=== PATIENT | male | born 1950 | race Caucasian/White ===

== ENCOUNTER 2018-03-16 04:49 | Emergency (ER) | payer OTHER, MEDICARE ==
[~2018-03-16] VITALS: Ht 180.3 cm; Wt 81.7 kg
[~2018-03-16 04:49] MED LIST: AMLODIPINE-BEN1 EAC3 PO; ASPIRIN EC81 M1; ASPIRIN325 PO; CARAFATE 11 GM/10 M1 PO; CLONIDINE HCL0.2 M2 PO; COMBIVENT INH; COREG3.125 MG PO; CRESTOR10 MG; DOXYCYCLINE 10100 M1 PO; GINSENG520 MG PO; HYDROCHLOROTHIA25 M1 PO; HYTRIN 5 M5 MG/1 CAP PO; HYTRIN10 MG; IBUPROFEN 200200 M1 PO; IMDUR 30 MG TAB30 M1 PO; LEVAQUIN 500 M500 M2 PO; LIPITOR 10 MG10 M1 PO; NEURONTIN 300300 M1; OMEPRAZOLE20 M2 PO; PANTOPRAZOLE SO40 M1 PO; PLAVIX 75 MG TA75 M1 PO; PREDNISONE 10 M10 MG PO; PROSTATE HEALT1 EAC1 PO; SERTRALINE HCL100 MG; SYMBICORT160 MCG/4. INH; TURMERIC500 MG PO; ZOCOR 20 MG TAB20 M1 PO
[2018-03-16 05:39] LABS: CALCIUM 8.9 mg/dL (8.5-10.1); CREATININE 0.9 mg/dL (0.6-1.3); POTASSIUM 3.9 mmol/L (3.5-5.1)
[2018-03-16 05:50] LABS: URINE BILIRUBIN NEGATIVE (Negative); URINE BLOOD 3+ (Negative); URINE CLARITY CLOUDY; URINE COLOR YELLOW; URINE GLUCOSE-RANDOM NEGATIVE (Negative); URINE KETONES NEGATIVE (Negative); URINE PROTEIN 2+ (Negative); URINE SPECIFIC GRAVITY 1.015 (1.005-1.030)
[2018-03-16 05:51] LABS: URINE LEUKOCYTES-REFLEX 3+ (Negative); URINE NITRITE-REFLEX POSITIVE (Negative)
[2018-03-16] MEDS ORDERED: CIPRO500 MG PO (06:10)
[2018-03-16 06:14] LABS: BACTERIA-REFLEX >30 Many /HPF (None Seen); CASTS None Seen /LPF (None Seen); CRYSTALS None Seen /LPF (None Seen); MUCUS 4-6 Moderate strn/LPF (None Seen); SQUAMOUS NONE SEEN /LPF (0-3); URINE RBC 3-10 Few /HPF (0-2)
[2018-03-16 06:52] VITALS: BP 162/101
== END 2018-03-16 06:52 | disposition home or self-care (01) ==
LOC: M.ERS 04:49
PROVIDERS: Emergency Medicine Emergency Medical Services
DX: N39.0 Urinary tract infection, site not specified (principal); I10 Essential (primary) hypertension; J44.9 Chronic obstructive pulmonary disease, unspecified; N40.0 Benign prostatic hyperplasia without lower urinary tract symptoms; Z88.0 Allergy status to penicillin

== ENCOUNTER 2018-04-03 01:34 | Emergency (ER) | payer OTHER, MEDICARE ==
[~2018-04-03] VITALS: Ht 177.8 cm; Wt 80.7 kg
[~2018-04-03 01:34] MED LIST changes: +CIPRO500 MG PO
[2018-04-03 02:22] LABS: URINE BILIRUBIN NEGATIVE (Negative); URINE BLOOD 3+ (Negative); URINE COLOR YELLOW; URINE GLUCOSE-RANDOM NEGATIVE (Negative); URINE KETONES TRACE (Negative); URINE PROTEIN 2+ (Negative); URINE SPECIFIC GRAVITY 1.015 (1.005-1.030); URINE UROBILINOGEN 0.2 E.U./dl (0.2-1.0)
[2018-04-03 02:23] LABS: BACTERIA-REFLEX >30 Many /HPF (None Seen); SQUAMOUS 0-3 Few /LPF (0-3); URINE CLARITY SL CLOUDY; URINE LEUKOCYTES-REFLEX 2+ (Negative); URINE NITRITE-REFLEX POSITIVE (Negative); URINE RBC >20 Many /HPF (0-2); URINE WBC-REFLEX >25 Many /HPF (0-5); WBC CLUMPS Few (None Seen)
[2018-04-03 02:24] LABS: AMORPHOUS URATES Moderate /LPF (None Seen); CASTS None Seen /LPF (None Seen); MUCUS 4-6 Moderate strn/LPF (None Seen)
[2018-04-03] MEDS ORDERED: ZOFRAN ODT4 MG PO (02:49)
[2018-04-03] MEDS ORDERED: CIPROFLOXACIN500 M1 PO (02:49)
[2018-04-03 03:48] VITALS: BP 161/83
== END 2018-04-03 03:50 | disposition home or self-care (01) ==
LOC: M.ERS 01:34
PROVIDERS: Emergency Medicine
DX: N39.0 Urinary tract infection, site not specified (principal); I10 Essential (primary) hypertension; I48.91 Unspecified atrial fibrillation; J44.9 Chronic obstructive pulmonary disease, unspecified; G58.9 Mononeuropathy, unspecified; Z85.46 Personal history of malignant neoplasm of prostate; Z88.0 Allergy status to penicillin

== ENCOUNTER 2018-05-05 05:53 | Emergency (ER) | payer OTHER, MEDICARE ==
[~2018-05-05] VITALS: Ht 177.8 cm; Wt 81.7 kg
[~2018-05-05 05:53] MED LIST changes: +CIPROFLOXACIN500 M1 PO; +ZOFRAN ODT4 MG PO
[2018-05-05] MEDS ORDERED: ASPIR 8181 MG PO (06:09)
[2018-05-05] MEDS ORDERED: TROSPIUM CHLORI20 MG PO (06:11)
[2018-05-05] MEDS ORDERED: LOPRESSOR25 PO (06:12)
[2018-05-05] MEDS ORDERED: FERROUS SULFAT324 M1 PO (06:14)
[2018-05-05] MEDS ORDERED: PROSCAR 5MG TABL5 MG PO (06:15)
[2018-05-05] MEDS ORDERED: TAMSULOSIN HCL0.4 MG PO (06:15)
[2018-05-05] MEDS ORDERED: COLACE100 MG PO (06:15)
[2018-05-05] MEDS ORDERED: ERYTHROMYCIN (06:17)
[2018-05-05 06:52] VITALS: BP 171/99
== END 2018-05-05 06:56 | disposition home or self-care (01) ==
LOC: M.ERS 05:53
DX: T83.098A Other mechanical complication of other urinary catheter, initial encounter (principal); I10 Essential (primary) hypertension; I48.91 Unspecified atrial fibrillation; J44.9 Chronic obstructive pulmonary disease, unspecified; G62.9 Polyneuropathy, unspecified; Z85.46 Personal history of malignant neoplasm of prostate; Z88.0 Allergy status to penicillin; Y84.8 Other medical procedures as the cause of abnormal reaction of the patient, or of later complication, without mention of misadventure at the time of the procedure; Y92.89 Other specified places as the place of occurrence of the external cause

== ENCOUNTER 2018-05-07 22:36 | Emergency (ER) | payer OTHER, MEDICARE ==
[~2018-05-07] VITALS: Ht 180.3 cm; Wt 81.7 kg
[~2018-05-07 22:36] MED LIST changes: +ASPIR 8181 MG PO; +COLACE100 MG PO; +ERYTHROMYCIN; +FERROUS SULFAT324 M1 PO; +LOPRESSOR25 PO; +PROSCAR 5MG TABL5 MG PO; +TAMSULOSIN HCL0.4 MG PO; +TROSPIUM CHLORI20 MG PO
[2018-05-07 23:23] LABS: URINE BILIRUBIN NEGATIVE (Negative); URINE BLOOD 2+ (Negative); URINE CLARITY SL CLOUDY; URINE COLOR YELLOW; URINE GLUCOSE-RANDOM NEGATIVE (Negative); URINE KETONES NEGATIVE (Negative); URINE PROTEIN TRACE (Negative); URINE UROBILINOGEN 0.2 E.U./dl (0.2-1.0)
[2018-05-07 23:26] LABS: URINE LEUKOCYTES-REFLEX 3+ (Negative); URINE NITRITE-REFLEX POSITIVE (Negative)
[2018-05-07 23:48] LABS: SQUAMOUS 0-3 Few /LPF (0-3)
[2018-05-07 23:49] LABS: CASTS None Seen /LPF (None Seen); MUCUS 0-3 Light strn/LPF (None Seen); URINE WBC-REFLEX >25 Many /HPF (0-5)
[2018-05-07 23:50] LABS: BACTERIA-REFLEX >30 Many /HPF (None Seen); TRIPLE PHOSPHATE CRYSTALS 4-10 Moderate /LPF (None Seen); URINE RBC 3-10 Few /HPF (0-2)
[2018-05-07] MEDS ORDERED: CEFUROXIME500 MG PO (23:57)
[2018-05-08] MEDS ORDERED: LASIX 20 MG TAB20 MG PO (00:01)
[2018-05-08 01:05] VITALS: BP 186/100
== END 2018-05-08 01:10 | disposition home or self-care (01) ==
LOC: M.ERS 22:36
PROVIDERS: Emergency Medicine
DX: N39.0 Urinary tract infection, site not specified (principal); I10 Essential (primary) hypertension; J44.9 Chronic obstructive pulmonary disease, unspecified; I48.91 Unspecified atrial fibrillation; G62.9 Polyneuropathy, unspecified; Z85.46 Personal history of malignant neoplasm of prostate; Z88.0 Allergy status to penicillin

== ENCOUNTER 2018-06-04 00:33 | Inpatient (IN) | payer OTHER ==
[~2018-06-04] VITALS: Ht 182.9 cm; Wt 80.3 kg
[~2018-06-04 00:33] MED LIST changes: +CEFUROXIME500 MG PO; +LASIX 20 MG TAB20 MG PO
[2018-06-04 00:34] VITALS: BP 136/81
[2018-06-04] MEDS ORDERED: TROSPIUM CHLORI20 MG (00:47)
[2018-06-04] MEDS ORDERED: PROSCAR 5MG TABL5 MG (00:48)
[2018-06-04] MEDS ORDERED: BENAZEPRIL HCL5 MG (00:48)
[2018-06-04] MEDS ORDERED: SIMETHICON CHEW80 M1 (00:48)
[2018-06-04] MEDS ORDERED: TUMS (00:50)
[2018-06-04] MEDS ORDERED: VITAMIN D1000 UNI1 PO (00:52)
[2018-06-04] MEDS ORDERED: CASODEX 50 MG T50 M1 (00:54)
[2018-06-04] MEDS ORDERED: PROBIOTIC1 EAC1 (00:54)
[2018-06-04 01:20] LABS: HEMATOCRIT 29.7 % (42.0-52.0); HEMOGLOBIN 9.2 gm/dL (14.0-18.0); MCH 22.9 pg (26.0-34.0); MCHC 30.8 g/dL (28.0-37.0); MCV 74.4 fL (80.0-100.0); MPV 8.7 fl. (7.2-11.1); NUCLEATED RBCS 0 /100WBC; PLATELET COUNT* 724 thou/uL (150-400); RBC 3.99 mil/uL (4.50-6.00); RDW-CV 18.8 % (10.5-14.5); WBC 18.8 thou/uL (4.0-11.0)
[2018-06-04 01:28] LABS: BE 4.7 mmol/L (-2 to +3); PCO2 43.5 mmHg (35.0-45.0); pH 7.445 (7.340-7.450)
[2018-06-04 01:31] LABS: PO2 189.8 mmHg (75.0-100.0)
[2018-06-04 01:33] LABS: ANION GAP 5 mmol/L (7-16); BUN 20 mg/dL (7-18); CALCIUM 9.9 mg/dL (8.5-10.1); CHLORIDE 93 mmol/L (98-107); CO2 31 mmol/L (21-32); CREATININE 1.1 mg/dL (0.6-1.3); GLUCOSE 165 mg/dL (70-99); POTASSIUM 3.8 mmol/L (3.5-5.1); SODIUM 129 mmol/L (136-145); TROPONIN-I LEVEL <0.06 ng/mL (<0.06)
[2018-06-04 01:35] LABS: ALBUMIN 2.9 g/dL (3.4-5.0); ALKALINE PHOSPHATASE 104 U/L (46-116); NT-PRO BRAIN NAT PEPTIDE 335 pg/mL (<300); SGOT 23 U/L (15-37); SGPT 25 U/L (30-65); TOTAL BILIRUBIN 0.2 mg/dL (<0.1-1.0); TOTAL PROTEIN 6.8 g/dL (6.4-8.2)
[2018-06-04 02:22] LABS: INR 1.1; PROTIME 10.9 Seconds (9.20-11.50)
[2018-06-04 08:45] VITALS: BP 86/57
[2018-06-04 09:22] LABS: ABSOLUTE LYMPHOCYTES 1.1 thou/uL (0.8-5.3); ABSOLUTE MONOCYTES 1.3 thou/uL (0.0-1.2); ABSOLUTE NEUTROPHILS 16.4 thou/uL (1.6-8.1); PLATELET ESTIMATE INCREASED
[2018-06-04 09:23] LABS: ANISOCYTOSIS 1+; MICROCYTES 1+
[2018-06-04 09:24] LABS: HYPOCHROMASIA 1+
--- NOTE | 2018-06-04 14:10 | EKG ---
[place] [address] ELECTROCARDIOGRAM REPORT Name: BRETT ESTEVEZ SR Room: [place] [address] ADM IN .R.#: [id number] Admission: 06/04/18 Attend Phys: Corky Pelletier MD Discharge: Date of : 48 Report #: [id number] THIS REPORT FOR: //name// [facility] ED Test Date: 2018-06-04 Test Time: 01:36:20 Pat Name: BRETT GRAYMACKERI Department: Room: [facility] Gender: M [employer]line Mechanic: : 1950 Requested By: Katerin Silva Order Number: [id number] MD: Garrett Maradiaga Measurements Intervals [place] Rate: 121 P: 99 HI: 184 QRS: 85 QRSD: 90 T: -88 QT: 310 QTc: 440 Interpretive Statements Sinus tachycardia Borderline right axis deviation Consider anterior infarct Compared to ECG 04/12/2015 06:33:54 Myocardial infarct finding now present Sinus rhythm no longer present Electronically Signed On 06-04-2018 14:09:56 QUALITY CONTROL LEAD by Garrett Maradiaga [email or web address] <ELECTRONICALLY SIGNED> By: Garrett Maradiaga MD, [facility] 06/04/18 [id number] Garrett Maradiaga MD, [facility] /EPI
== END 2018-06-04 08:55 | disposition home or self-care (01) | DRG 200 ==
LOC: M.ERS 00:33 → M.TBA-ER 04:18
PROVIDERS: Emergency Medicine
PROC: 0W9930Z Drainage of Right Pleural Cavity with Drainage Device, Percutaneous Approach (ICD-10-PCS; principal; 2018-06-04)
DX: J93.9 Pneumothorax, unspecified (principal); T79.7XXA Traumatic subcutaneous emphysema, initial encounter; K92.2 Gastrointestinal hemorrhage, unspecified; C15.9 Malignant neoplasm of esophagus, unspecified; J44.1 Chronic obstructive pulmonary disease with (acute) exacerbation; I25.10 Atherosclerotic heart disease of native coronary artery without angina pectoris; C61 Malignant neoplasm of prostate; F41.9 Anxiety disorder, unspecified; I10 Essential (primary) hypertension; G62.9 Polyneuropathy, unspecified; I48.91 Unspecified atrial fibrillation; Z99.81 Dependence on supplemental oxygen; Z95.5 Presence of coronary angioplasty implant and graft; Z79.82 Long term (current) use of aspirin; Z88.0 Allergy status to penicillin; Z87.891 Personal history of nicotine dependence